=== PATIENT | male | born 1970 | race African-American/Black ===

== ENCOUNTER 2017-12-01 19:56 | Observation (INO) | payer OTHER ==
[~2017-12-01] VITALS: Ht 175.3 cm; Wt 78.0 kg
[~2017-12-01 19:56] MED LIST: AMOXICILLIN500 MG PO; AMOXICILLIN875 MG OR; CIPRO500 MG OR; FLEXERIL10 MG PO; MEDDOSEPAK OR; NAPROXEN375 MG OR; PERCOCET1 TA2 PO; PROAIR HFA IN; ROBITUSSIN AC10 ML OR; ROBITUSSIN AC10 ML PO; VENTOLIN HFA IN; ZPAK PO
[2017-12-01] MEDS ORDERED: ULTRAM50 M1 PO (20:27)
[2017-12-01 20:38] LABS: HEMATOCRIT 41.4 % (39.0-50.0); IMMATURE GRANULOCYTES 0.1 % (0.0-1.0); MEAN CELL VOLUME 91.2 fL CALC (80.0-100.0); MEAN CORPUSCULAR HGB 30.8 pG CALC (26.0-32.0); MEAN CORPUSCULAR HGB CONC 33.8 g/L CALC (32.0-36.0); NEUT# 3.62 thou/uL (1.82-7.42); RED BLOOD COUNT 4.54 mill/uL (4.70-6.10); RED CELL DISTRI WIDTH 13.3 % (11.5-15.5)
[2017-12-01 20:48] LABS: ALBUMIN 4.4 g/dL (3.2-5.0); ALKALINE PHOSPHATASE 47 u/l (38-126); ANION GAP 17 (6-22 (CALC)); BILIRUBIN, TOTAL 0.6 mg/dL (0.0-1.4); BUN 14 mg/dL (9-20); BUN/CREATININE RATIO 10 (12-20 (CALC)); CARBON DIOXIDE 26 mmol/l (22-30); CHLORIDE 103 mmol/l (95-108); CREATININE 1.4 mg/dL (0.7-1.3); GFR 55 ML/MIN (>=60 (CALC)); GFR FOR AFR.AMER. > 60 ML/MIN (>=60 (CALC)); POTASSIUM 3.7 mmol/l (3.5-5.1); SGOT/AST 34 u/l (17-59); SGPT/ALT 31 u/l (21-72); SODIUM 142 mmol/l (137-146)
[2017-12-01 20:50] VITALS: BP 132/73
[2017-12-01 21:01] LABS: MYOGLOBIN 41 ng/mL (0 - 121)
[2017-12-01 21:29] LABS: URINE BILIRUBIN - DIPSTICK NEGATIVE (NEGATIVE); URINE BLOOD DIPSTICK NEGATIVE (NEGATIVE); URINE COLOR YELLOW; URINE GLUCOSE - DIPSTICK NEGATIVE (NEGATIVE); URINE KETONE NEGATIVE (NEGATIVE); URINE LEUK ESTERASE NEGATIVE (NEGATIVE); URINE NITRITE - DIPSTICK NEGATIVE (Negative); URINE PH 6.5 (4.5-8.0); URINE PROTEIN - DIPSTICK NEGATIVE (NEG-TRACE); URINE SPECIFIC GRAVITY <=1.005; URINE UROBILINOGEN - DIPSTICK 0.2 E.U./dL (0.2)
[2017-12-01 21:30] LABS: URINE CLARITY CLEAR
[2017-12-01 21:32] LABS: BARBITURATES NEGATIVE (NEGATIVE); COCAINE NEGATIVE (NEGATIVE); METHADONE NEGATIVE (NEGATIVE); OXCYCODONE NEGATIVE (NEGATIVE); TETRAHYDROCANNABIONOL NEGATIVE (NEGATIVE); TRICYLIC ANTIDEPRESSANTS NEGATIVE (NEGATIVE)
[2017-12-02 00:54] VITALS: BP 103/57
[2017-12-02 05:14] VITALS: BP 95/55
[2017-12-02 09:02] LABS: CHOLESTEROL HDL RATIO 4.4 (<4.4 (CALC))
[2017-12-02 11:15] VITALS: BP 119/77
[2017-12-02] MEDS ORDERED: LIPITOR20 MG PO (13:16)
[2017-12-02] MEDS ORDERED: LISINOPRIL2.5 MG PO (13:16)
[2017-12-02] MEDS ORDERED: ASPIRIN ADULT L81 M2 PO (13:16)
== END 2017-12-02 13:40 | DRG 313 ==
LOC: ED 19:56 → ED-I 21:50 → ED 22:05 → MS2 22:06
PROVIDERS: Emergency Medicine; Nurse Practitioner Family; ADMIT Internal Medicine; ATTEND Internal Medicine
DX: R07.9 Chest pain, unspecified (principal); I10 Essential (primary) hypertension; I38 Endocarditis, valve unspecified; E78.5 Hyperlipidemia, unspecified; F17.210 Nicotine dependence, cigarettes, uncomplicated; J45.909 Unspecified asthma, uncomplicated; I69.922 Dysarthria following unspecified cerebrovascular disease; I69.992 Facial weakness following unspecified cerebrovascular disease; I69.998 Other sequelae following unspecified cerebrovascular disease; R20.8 Other disturbances of skin sensation; I69.931 Monoplegia of upper limb following unspecified cerebrovascular disease affecting right dominant side; Z91.14 Patient's other noncompliance with medication regimen
CPT/HCPCS: G0378

== ENCOUNTER 2020-01-17 05:37 | Emergency (ER) | payer SELFPAY ==
[~2020-01-17 05:37] MED LIST changes: +ASPIRIN ADULT L81 M2 PO; +LIPITOR20 MG PO; +LISINOPRIL2.5 MG PO; +ULTRAM50 M1 PO
[2020-01-17] MEDS ORDERED: CYCLOBENZAPR5 MG PO (08:27)
[2020-01-17] MEDS ORDERED: VOLTAREN1%GEL TOP (08:27)
[2020-01-17] MEDS ORDERED: MOTRIN400 MG PO ×2 (08:27)
[2020-01-17 08:40] VITALS: BP 179/88
== END 2020-01-17 08:37 | disposition home or self-care (01) | DRG 556 ==
LOC: ED 05:37
DX: M25.551 Pain in right hip (principal); I10 Essential (primary) hypertension; F17.200 Nicotine dependence, unspecified, uncomplicated; X50.0XXA Overexertion from strenuous movement or load, initial encounter; Y93.89 Activity, other specified; Y92.89 Other specified places as the place of occurrence of the external cause; Y99.0 Civilian activity done for income or pay; Z86.73 Personal history of transient ischemic attack (TIA), and cerebral infarction without residual deficits

== ENCOUNTER 2020-02-13 07:13 | Emergency (ER) | payer OTHER ==
[~2020-02-13] VITALS: Ht 175.3 cm; Wt 87.0 kg
[~2020-02-13 07:13] MED LIST changes: +CYCLOBENZAPR5 MG PO; +MOTRIN400 MG PO; +VOLTAREN1%GEL TOP
[2020-02-13] MEDS ORDERED: ULTRAM50 M1 PO (09:42)
[2020-02-13 09:45] LABS: URINE BILIRUBIN - DIPSTICK NEGATIVE (NEGATIVE); URINE BLOOD DIPSTICK NEGATIVE (NEGATIVE); URINE CLARITY CLEAR; URINE COLOR YELLOW; URINE GLUCOSE - DIPSTICK NEGATIVE (NEGATIVE); URINE KETONE TRACE mg/dL (NEGATIVE); URINE LEUK ESTERASE NEGATIVE (Negative); URINE NITRITE - DIPSTICK NEGATIVE (Negative); URINE PH 6.5 (4.5-8.0); URINE PROTEIN - DIPSTICK NEGATIVE (NEG-TRACE); URINE SPECIFIC GRAVITY >=1.030; URINE UROBILINOGEN - DIPSTICK 0.2 E.U./dL (0.2)
[2020-02-13 10:17] VITALS: BP 142/86
== END 2020-02-13 10:15 | disposition home or self-care (01) | DRG 554 ==
LOC: ED 07:13
PROVIDERS: Emergency Medicine
DX: M87.851 Other osteonecrosis, right femur (principal); I10 Essential (primary) hypertension; F17.200 Nicotine dependence, unspecified, uncomplicated; Z86.73 Personal history of transient ischemic attack (TIA), and cerebral infarction without residual deficits

== ENCOUNTER 2020-04-01 19:31 | Emergency (ER) | payer SELFPAY ==
[~2020-04-01] VITALS: Ht 175.3 cm; Wt 74.0 kg
[2020-04-01 21:50] VITALS: BP 149/80
== END 2020-04-01 22:00 | disposition home or self-care (01) | DRG 605 ==
LOC: ED 19:31
PROC: 0HQGXZZ Repair Left Hand Skin, External Approach (ICD-10-PCS; principal; 2020-04-01)
DX: S61.012A Laceration without foreign body of left thumb without damage to nail, initial encounter (principal); I10 Essential (primary) hypertension; F17.210 Nicotine dependence, cigarettes, uncomplicated; W26.0XXA Contact with knife, initial encounter; Y93.89 Activity, other specified; Y92.828 Other wilderness area as the place of occurrence of the external cause; Z86.73 Personal history of transient ischemic attack (TIA), and cerebral infarction without residual deficits

== ENCOUNTER 2021-02-25 00:32 | Emergency (ER) | payer OTHER ==
[~2021-02-25] VITALS: Ht 175.3 cm; Wt 74.0 kg
[2021-02-25] MEDS ORDERED: VENTOLIN HFA108 MCG IN (00:55)
[2021-02-25 01:03] LABS: HEMOGLOBIN 12.9 g/dl (14.0-18.0); IMMATURE GRANULOCYTES 0.1 % (0.0-5.0); MEAN CELL VOLUME 95.1 fL CALC (80.0-100.0); MEAN CORPUSCULAR HGB 31.5 pG CALC (26.0-32.0); MEAN CORPUSCULAR HGB CONC 33.1 g/dL CAL (32.0-36.0); NEUT# 4.47 thou/uL (1.82-7.42); RED BLOOD COUNT 4.1 mill/uL (4.70-6.10); RED CELL DISTRI WIDTH 13.7 % (11.5-15.5)
[2021-02-25 01:13] LABS: ALKALINE PHOSPHATASE 44 u/l (38-126); ANION GAP 12 (6-22 (CALC)); BILIRUBIN, TOTAL 0.4 mg/dL (0.0-1.4); BUN 10 mg/dL (9-20); BUN/CREATININE RATIO 8 (12-20 (CALC)); CARBON DIOXIDE 24 mmol/l (22-30); CHLORIDE 107 mmol/l (95-108); CREATININE 1.3 mg/dL (0.7-1.3); ETHYL ALCOHOL 78 mg/dl (0-30); GFR 59 ML/MIN (>=60 (CALC)); GFR FOR AFR.AMER. > 60 ML/MIN (>=60 (CALC)); SGOT/AST 54 u/l (17-59); SODIUM 140 mmol/l (137-146); TOTAL PROTEIN 7.3 g/dL (6.3-8.2)
[2021-02-25 01:27] LABS: ACT PARTIAL THROMBO TIME 24.1 SECONDS (20.0-32.5); PROTHROMBIN TIME 10.3 SECONDS (9.0-12.5)
[2021-02-25 03:50] VITALS: BP 147/85
== END 2021-02-25 03:50 | disposition left against medical advice (07) | DRG 605 ==
LOC: ED 00:32
PROVIDERS: Family Medicine
DX: S00.81XA Abrasion of other part of head, initial encounter (principal); S00.211A Abrasion of right eyelid and periocular area, initial encounter; S00.83XA Contusion of other part of head, initial encounter; S00.11XA Contusion of right eyelid and periocular area, initial encounter; I10 Essential (primary) hypertension; J45.909 Unspecified asthma, uncomplicated; E78.00 Pure hypercholesterolemia, unspecified; F17.200 Nicotine dependence, unspecified, uncomplicated; V47.5XXA Car driver injured in collision with fixed or stationary object in traffic accident, initial encounter; Z86.73 Personal history of transient ischemic attack (TIA), and cerebral infarction without residual deficits; Z91.19 Patient's noncompliance with other medical treatment and regimen; Z72.89 Other problems related to lifestyle

== ENCOUNTER 2021-06-15 10:28 | Emergency (ER) | payer BC ==
[~2021-06-15] VITALS: Ht 175.3 cm; Wt 72.0 kg
[~2021-06-15 10:28] MED LIST changes: +VENTOLIN HFA108 MCG IN
[2021-06-15 12:52] LABS: HEMATOCRIT 41.3 % (39.0-50.0); HEMOGLOBIN 13.8 g/dl (14.0-18.0); MEAN CELL VOLUME 94.1 fL CALC (80.0-100.0); MEAN CORPUSCULAR HGB 31.4 pG CALC (26.0-32.0); MEAN CORPUSCULAR HGB CONC 33.4 g/dL CAL (32.0-36.0); NEUT# 3.48 thou/uL (1.82-7.42); RED BLOOD COUNT 4.39 mill/uL (4.70-6.10); RED CELL DISTRI WIDTH 13.6 % (11.5-15.5)
[2021-06-15 13:10] LABS: ALBUMIN 4.3 g/dL (3.2-5.0); ALKALINE PHOSPHATASE 56 u/l (38-126); ANION GAP 10 (6-22 (CALC)); BILIRUBIN, TOTAL 0.5 mg/dL (0.0-1.4); BUN 14 mg/dL (9-20); BUN/CREATININE RATIO 12 (12-20 (CALC)); CARBON DIOXIDE 28 mmol/l (22-30); CHLORIDE 105 mmol/l (95-108); CREATININE 1.2 mg/dL (0.7-1.3); GFR > 60 ML/MIN (>=60 (CALC)); GFR FOR AFR.AMER. > 60 ML/MIN (>=60 (CALC)); POTASSIUM 3.9 mmol/l (3.5-5.1); SGOT/AST 45 u/l (17-59); SODIUM 140 mmol/l (137-146)
[2021-06-15] MEDS ORDERED: KEFLEX500 MG PO (13:51)
[2021-06-15] MEDS ORDERED: PERCOCET 5/321 COMBO PO (13:53)
[2021-06-15] MEDS ORDERED: TORADOL PO (13:56)
[2021-06-15 14:05] VITALS: BP 185/92
== END 2021-06-15 14:10 | disposition home or self-care (01) | DRG 607 ==
LOC: ED 10:28
PROVIDERS: Emergency Medicine
PROC: 0H91XZZ Drainage of Face Skin, External Approach (ICD-10-PCS; principal; 2021-06-15)
DX: L72.3 Sebaceous cyst (principal); M25.551 Pain in right hip; J45.909 Unspecified asthma, uncomplicated; I10 Essential (primary) hypertension; E78.00 Pure hypercholesterolemia, unspecified; F17.210 Nicotine dependence, cigarettes, uncomplicated; Z86.73 Personal history of transient ischemic attack (TIA), and cerebral infarction without residual deficits

== ENCOUNTER 2021-08-28 07:24 | Emergency (ER) | payer SELFPAY ==
[~2021-08-28] VITALS: Ht 175.3 cm; Wt 76.4 kg
[~2021-08-28 07:24] MED LIST changes: +KEFLEX500 MG PO; +PERCOCET 5/321 COMBO PO; +PERCOCET1 TA4 PO; +TORADOL PO
[2021-08-28 09:00] VITALS: BP 155/76
[2021-08-28] MEDS ORDERED: VOLTAREN1%GEL TOP (09:09)
== END 2021-08-28 09:26 | disposition home or self-care (01) | DRG 554 ==
LOC: ED 07:24
DX: M17.12 Unilateral primary osteoarthritis, left knee (principal); M25.862 Other specified joint disorders, left knee; I10 Essential (primary) hypertension; E78.00 Pure hypercholesterolemia, unspecified; J45.909 Unspecified asthma, uncomplicated; F17.200 Nicotine dependence, unspecified, uncomplicated; Z86.73 Personal history of transient ischemic attack (TIA), and cerebral infarction without residual deficits
CPT/HCPCS: L1830

== ENCOUNTER 2021-10-19 10:02 | Emergency (ER) | payer BC ==
[~2021-10-19] VITALS: Ht 175.3 cm; Wt 75.0 kg
[2021-10-19] MEDS ORDERED: PERCOCET 5/325M1 TAB PO (11:18)
[2021-10-19 11:55] VITALS: BP 107/67
== END 2021-10-19 11:55 | disposition home or self-care (01) | DRG 948 ==
LOC: ED 10:02
DX: G89.18 Other acute postprocedural pain (principal); I10 Essential (primary) hypertension; J45.909 Unspecified asthma, uncomplicated; E78.00 Pure hypercholesterolemia, unspecified; F17.210 Nicotine dependence, cigarettes, uncomplicated; Z86.73 Personal history of transient ischemic attack (TIA), and cerebral infarction without residual deficits; Z96.641 Presence of right artificial hip joint

== ENCOUNTER 2023-02-20 05:00 | Emergency (ER) | payer BC ==
[~2023-02-20] VITALS: Ht 175.3 cm; Wt 68.0 kg
[~2023-02-20 05:00] MED LIST changes: +PERCOCET 5/325M1 TAB PO
[2023-02-20] MEDS ORDERED: NAPROXEN250 MG PO (05:16)
[2023-02-20 05:45] LABS: BASO% 0.6 % (0-3); EOS% 3.9 % (0-8); HEMATOCRIT 41.9 % (39.0-50.0); HEMOGLOBIN 13.5 g/dl (14.0-18.0); IMMATURE GRANULOCYTES 0.2 % (0.0-5.0); LYMPH% 29.1 % (15-41); MEAN CELL VOLUME 97.4 fL CALC (80.0-100.0); MEAN CORPUSCULAR HGB 31.4 pG CALC (26.0-32.0); MEAN CORPUSCULAR HGB CONC 32.2 g/dL CAL (32.0-36.0); MONO% 7.8 % (2-13); NEUT# 3.6 thou/uL (1.82-7.42); NEUT% 58.4 % (42-76); RED BLOOD COUNT 4.3 mill/uL (4.70-6.10); RED CELL DISTRI WIDTH 14.4 % (11.5-15.5)
[2023-02-20 05:56] LABS: ALBUMIN 4.1 g/dL (3.2-5.0); ALKALINE PHOSPHATASE 53 u/l (38-126); ANION GAP 9 (6-22 (CALC)); BUN 17 mg/dL (9-20); BUN/CREATININE RATIO 14 (12-20 (CALC)); CARBON DIOXIDE 25 mmol/l (22-30); CHLORIDE 108 mmol/l (95-108); CREATININE 1.1 mg/dL (0.7-1.3); ETHYL ALCOHOL 0 mg/dl (0-30); GFR FOR AFR.AMER. > 60 ML/MIN (>=60 (CALC)); GFR OTHER RACES > 60 ML/MIN (>=60 (CALC)); MAGNESIUM 1.9 mg/dL (1.6-2.3); POTASSIUM 4.4 mmol/l (3.5-5.1); SGOT/AST 28 u/l (17-59); SODIUM 138 mmol/l (137-146); TOTAL PROTEIN 7.1 g/dL (6.3-8.2)
[2023-02-20 05:57] LABS: BILIRUBIN, TOTAL 0.2 mg/dL (0.2-1.3)
[2023-02-20 17:26] LABS: URINE BILIRUBIN - DIPSTICK NEGATIVE (NEGATIVE); URINE BLOOD DIPSTICK NEGATIVE (NEGATIVE); URINE COLOR YELLOW; URINE GLUCOSE - DIPSTICK NEGATIVE (NEGATIVE); URINE KETONE NEGATIVE (NEGATIVE); URINE LEUK ESTERASE NEGATIVE (NEGATIVE); URINE PROTEIN - DIPSTICK NEGATIVE (NEG-TRACE); URINE SPECIFIC GRAVITY >=1.030; URINE UROBILINOGEN - DIPSTICK 0.2 E.U./dL (0.2)
[2023-02-20 17:28] LABS: URINE NITRITE - DIPSTICK NEGATIVE (Negative)
[2023-02-20 19:20] VITALS: BP 131/87
== END 2023-02-20 19:30 | DRG 880 ==
LOC: ED 05:00
PROVIDERS: Family Medicine
DX: R45.851 Suicidal ideations (principal); R44.0 Auditory hallucinations; F12.10 Cannabis abuse, uncomplicated; I10 Essential (primary) hypertension; J45.909 Unspecified asthma, uncomplicated; E78.00 Pure hypercholesterolemia, unspecified; F17.200 Nicotine dependence, unspecified, uncomplicated; Z86.73 Personal history of transient ischemic attack (TIA), and cerebral infarction without residual deficits; Z96.641 Presence of right artificial hip joint

== ENCOUNTER 2023-09-08 13:19 | Inpatient (IN) | payer BC ==
[~2023-09-08] VITALS: Ht 175.3 cm; Wt 65.8 kg
[2023-09-08] VITALS (23 sets, daily range): BP systolic 129–178; BP diastolic 67–87
[~2023-09-08 13:19] MED LIST changes: +NAPROXEN250 MG PO
[2023-09-08 13:52] LABS: BASO% 0.3 % (0-3); EOS% 2.1 % (0-8); HEMATOCRIT 41.8 % (39.0-50.0); HEMOGLOBIN 13.6 g/dl (14.0-18.0); IMMATURE GRANULOCYTES 0.2 % (0.0-5.0); LYMPH% 29.9 % (15-41); MEAN CELL VOLUME 96.8 fL CALC (80.0-100.0); MEAN CORPUSCULAR HGB 31.5 pG CALC (26.0-32.0); MEAN CORPUSCULAR HGB CONC 32.5 g/dL CAL (32.0-36.0); MONO% 12.4 % (2-13); NEUT# 3.33 thou/uL (1.82-7.42); NEUT% 55.1 % (42-76); RED BLOOD COUNT 4.32 mill/uL (4.70-6.10); RED CELL DISTRI WIDTH 13.3 % (11.5-15.5)
[2023-09-08 14:17] LABS: INTERNATIONAL NORMALIZED RATIO 1.1 RATIO (0.7-1.3); PROTHROMBIN TIME 10.4 SECONDS (9.0-12.5)
[2023-09-08 14:38] LABS: ALBUMIN 4.1 g/dL (3.2-5.0); ALKALINE PHOSPHATASE 47 u/l (38-126); ANION GAP 9 (6-22 (CALC)); BUN 19 mg/dL (9-20); BUN/CREATININE RATIO 18 (12-20 (CALC)); CALCULATED LDLCHOLESTEROL 111 mg/dL (62-129 (CALC)); CARBON DIOXIDE 26 mmol/l (22-30); CHLORIDE 108 mmol/l (95-108); CHOLESTEROL HDL RATIO 3.7 (<4.4 (CALC)); CREATININE 1.1 mg/dL (0.7-1.3); GFR FOR AFR.AMER. > 60 ML/MIN (>=60 (CALC)); GFR OTHER RACES > 60 ML/MIN (>=60 (CALC)); HDL CHOLESTEROL 46 mg/dL (39.0-59.0); POTASSIUM 4.3 mmol/l (3.5-5.1); SGOT/AST 45 u/l (17-59); SODIUM 138 mmol/l (137-146); TOTAL CHOLESTEROL 168 mg/dl (0-199); TOTAL PROTEIN 7.4 g/dL (6.3-8.2); TOTAL TRIGLYCERIDES 59 mg/dl (0-149); VLDL CHOLESTROL 12 mg/dl (8-62 (CALC))
[2023-09-08 14:45] LABS: BILIRUBIN, TOTAL 0.3 mg/dL (0.2-1.3)
[2023-09-08 18:04] LABS: C-REACTIVE PROTEIN < 0.5 mg/dL (0-0.9)
[2023-09-08 20:13] LABS: URINE BILIRUBIN - DIPSTICK Negative (NEGATIVE); URINE BLOOD DIPSTICK Moderate (NEGATIVE); URINE GLUCOSE - DIPSTICK Negative (NEGATIVE); URINE KETONE Negative (NEGATIVE); URINE LEUK ESTERASE Negative (NEGATIVE); URINE NITRITE - DIPSTICK Negative (Negative); URINE PROTEIN - DIPSTICK Negative (NEG-TRACE); URINE UROBILINOGEN - DIPSTICK 0.2 E.U./dL (0.2)
[2023-09-08 20:17] LABS: URINE COLOR Yellow
[2023-09-08 20:24] LABS: URINE WBC 0-2 WBC/hpf (0-5)
[2023-09-09] VITALS (59 sets, daily range): BP systolic 116–187; BP diastolic 65–151
[2023-09-09 05:06] LABS: HEMOGLOBIN 14.6 g/dl (14.0-18.0); MEAN CELL VOLUME 96.1 fL CALC (80.0-100.0); MEAN CORPUSCULAR HGB 31.9 pG CALC (26.0-32.0); MEAN CORPUSCULAR HGB CONC 33.2 g/dL CAL (32.0-36.0); RED BLOOD COUNT 4.58 mill/uL (4.70-6.10); RED CELL DISTRI WIDTH 13.1 % (11.5-15.5)
[2023-09-09 05:17] LABS: ALBUMIN 3.7 g/dL (3.2-5.0); ALKALINE PHOSPHATASE 58 u/l (38-126); ANION GAP 9 (6-22 (CALC)); BILIRUBIN, TOTAL 0.5 mg/dL (0.2-1.3); BUN 16 mg/dL (9-20); BUN/CREATININE RATIO 15 (12-20 (CALC)); CARBON DIOXIDE 26 mmol/l (22-30); CHLORIDE 108 mmol/l (95-108); GFR FOR AFR.AMER. > 60 ML/MIN (>=60 (CALC)); GFR OTHER RACES > 60 ML/MIN (>=60 (CALC)); MAGNESIUM 1.9 mg/dL (1.6-2.3); POTASSIUM 4.3 mmol/l (3.5-5.1); SGOT/AST 30 u/l (17-59); SODIUM 139 mmol/l (137-146); TOTAL PROTEIN 6.6 g/dL (6.3-8.2)
[2023-09-10] VITALS (12 sets, daily range): BP systolic 118–154; BP diastolic 64–82
[2023-09-10 09:06] LABS: BASO% 0.7 % (0-3); EOS% 2.2 % (0-8); HEMATOCRIT 40.5 % (39.0-50.0); HEMOGLOBIN 13.1 g/dl (14.0-18.0); IMMATURE GRANULOCYTES 0.2 % (0.0-5.0); LYMPH% 31.6 % (15-41); MEAN CELL VOLUME 97.8 fL CALC (80.0-100.0); MEAN CORPUSCULAR HGB 31.6 pG CALC (26.0-32.0); MEAN CORPUSCULAR HGB CONC 32.3 g/dL CAL (32.0-36.0); MONO% 9.7 % (2-13); NEUT# 2.96 thou/uL (1.82-7.42); NEUT% 55.6 % (42-76); RED BLOOD COUNT 4.14 mill/uL (4.70-6.10); RED CELL DISTRI WIDTH 13.1 % (11.5-15.5)
[2023-09-10 09:37] LABS: ANION GAP 9 (6-22 (CALC)); BUN 16 mg/dL (9-20); BUN/CREATININE RATIO 15 (12-20 (CALC)); CARBON DIOXIDE 25 mmol/l (22-30); CHLORIDE 110 mmol/l (95-108); GFR FOR AFR.AMER. > 60 ML/MIN (>=60 (CALC)); GFR OTHER RACES > 60 ML/MIN (>=60 (CALC)); POTASSIUM 4.1 mmol/l (3.5-5.1); SODIUM 140 mmol/l (137-146)
[2023-09-10] MEDS ORDERED: ASPIRIN81 MG PO (14:53)
[2023-09-10] MEDS ORDERED: ATORVASTATIN CA40 MG PO (14:53)
[2023-09-10] MEDS ORDERED: PLAVIX75 MG PO (14:53)
[2023-09-11] MEDS ORDERED: LIPITOR80 M1 PO (14:16)
== END 2023-09-10 15:45 | disposition home or self-care (01) | DRG 64 ==
LOC: ED 13:19 → ICU 16:54
PROVIDERS: Emergency Medicine; ADMIT Student in an Organized Health Care Education/Training Program; ATTEND Student in an Organized Health Care Education/Training Program
DX: I63.81 Other cerebral infarction due to occlusion or stenosis of small artery (principal); G82.50 Quadriplegia, unspecified; I63.423 Cerebral infarction due to embolism of bilateral anterior cerebral arteries; R47.81 Slurred speech; R41.0 Disorientation, unspecified; R29.706 NIHSS score 6; I10 Essential (primary) hypertension; F15.90 Other stimulant use, unspecified, uncomplicated; E78.00 Pure hypercholesterolemia, unspecified; F41.9 Anxiety disorder, unspecified; F17.200 Nicotine dependence, unspecified, uncomplicated; Z86.73 Personal history of transient ischemic attack (TIA), and cerebral infarction without residual deficits; Z63.5 Disruption of family by separation and divorce
CPT/HCPCS: J1650; Q9967

== ENCOUNTER 2023-09-29 18:46 | Emergency (ER) | payer OTHER ==
[~2023-09-29] VITALS: Ht 175.3 cm; Wt 67.4 kg
[~2023-09-29 18:46] MED LIST changes: +ASPIRIN81 MG PO; +ATORVASTATIN CA40 MG PO; +LIPITOR80 M1 PO; +PLAVIX75 MG PO
[2023-09-29 19:02] VITALS: BP 133/70
[2023-09-29 19:15] VITALS: BP 128/68
[2023-09-29 19:15] LABS: BASO% 0.7 % (0-3); EOS% 2.8 % (0-8); HEMATOCRIT 42.3 % (39.0-50.0); HEMOGLOBIN 13.8 g/dl (14.0-18.0); LYMPH% 39.9 % (15-41); MEAN CELL VOLUME 95.9 fL CALC (80.0-100.0); MEAN CORPUSCULAR HGB 31.3 pG CALC (26.0-32.0); MEAN CORPUSCULAR HGB CONC 32.6 g/dL CAL (32.0-36.0); MONO% 10.5 % (2-13); NEUT# 2.78 thou/uL (1.82-7.42); NEUT% 46.1 % (42-76); RED BLOOD COUNT 4.41 mill/uL (4.70-6.10); RED CELL DISTRI WIDTH 13.1 % (11.5-15.5)
[2023-09-29 19:31] VITALS: BP 136/65
[2023-09-29 19:31] LABS: ALBUMIN 4.2 g/dL (3.2-5.0); ALKALINE PHOSPHATASE 48 u/l (38-126); ANION GAP 7 (6-22 (CALC)); BUN 18 mg/dL (9-20); BUN/CREATININE RATIO 18 (12-20 (CALC)); CALCULATED LDLCHOLESTEROL 84 mg/dL (62-129 (CALC)); CARBON DIOXIDE 30 mmol/l (22-30); CHLORIDE 104 mmol/l (95-108); GFR FOR AFR.AMER. > 60 ML/MIN (>=60 (CALC)); GFR OTHER RACES > 60 ML/MIN (>=60 (CALC)); HDL CHOLESTEROL 55 mg/dL (39.0-59.0); POTASSIUM 4.1 mmol/l (3.5-5.1); PROTHROMBIN TIME 9.9 SECONDS (9.0-12.5); SGOT/AST 43 u/l (17-59); SODIUM 138 mmol/l (137-146); TOTAL CHOLESTEROL 165 mg/dl (0-199); TOTAL PROTEIN 6.9 g/dL (6.3-8.2); TOTAL TRIGLYCERIDES 127 mg/dl (0-149); VLDL CHOLESTROL 25 mg/dl (8-62 (CALC))
[2023-09-29 19:38] LABS: BILIRUBIN, TOTAL 0.2 mg/dL (0.2-1.3)
[2023-09-29 19:47] VITALS: BP 99/63
== END 2023-09-29 20:00 | disposition left against medical advice (07) | DRG 66 ==
LOC: ED 18:46
PROVIDERS: Family Medicine
DX: I63.9 Cerebral infarction, unspecified (principal); R20.0 Anesthesia of skin; R40.0 Somnolence; R41.0 Disorientation, unspecified; R29.810 Facial weakness; R29.709 NIHSS score 9; I10 Essential (primary) hypertension; F14.10 Cocaine abuse, uncomplicated; J45.909 Unspecified asthma, uncomplicated; F41.9 Anxiety disorder, unspecified; F17.200 Nicotine dependence, unspecified, uncomplicated; Z86.73 Personal history of transient ischemic attack (TIA), and cerebral infarction without residual deficits; Z53.29 Procedure and treatment not carried out because of patient's decision for other reasons

== ENCOUNTER 2023-10-01 18:12 | Observation (INO) | payer OTHER ==
[~2023-10-01] VITALS: Ht 175.3 cm; Wt 65.0 kg
[2023-10-01] VITALS (9 sets, daily range): BP systolic 122–152; BP diastolic 58–91
--- NOTE | 2023-10-01 18:33 | NUR ---
PT DROP OFF BY SON REQUESTING THAT PT NEED A SHOT OF WHAT WE GAVE HIM LAST TIME TO CALM HIM DOWN.
--- NOTE | 2023-10-01 19:15 | NUR ---
REPORT FROM MAGDALENO FAJARDO. ASSUMING PT. CARE AT THIS TIME.
[2023-10-01 19:47] LABS: URINE BILIRUBIN - DIPSTICK Negative (NEGATIVE); URINE BLOOD DIPSTICK Negative (NEGATIVE); URINE GLUCOSE - DIPSTICK Negative (NEGATIVE); URINE KETONE Negative (NEGATIVE); URINE LEUK ESTERASE Negative (NEGATIVE); URINE NITRITE - DIPSTICK Negative (Negative); URINE PROTEIN - DIPSTICK Trace mg/dL (NEG-TRACE); URINE SPECIFIC GRAVITY 1.025; URINE UROBILINOGEN - DIPSTICK 0.2 E.U./dL (0.2)
[2023-10-01 19:49] LABS: URINE COLOR Yellow
[2023-10-01 19:50] LABS: BASO% 0.4 % (0-3); EOS% 1.1 % (0-8); HEMATOCRIT 43.4 % (39.0-50.0); HEMOGLOBIN 14.3 g/dl (14.0-18.0); IMMATURE GRANULOCYTES 0.1 % (0.0-5.0); LYMPH% 25.1 % (15-41); MEAN CELL VOLUME 95.6 fL CALC (80.0-100.0); MEAN CORPUSCULAR HGB 31.5 pG CALC (26.0-32.0); MEAN CORPUSCULAR HGB CONC 32.9 g/dL CAL (32.0-36.0); MONO% 11.9 % (2-13); NEUT# 4.6 thou/uL (1.82-7.42); NEUT% 61.4 % (42-76); RED BLOOD COUNT 4.54 mill/uL (4.70-6.10)
[2023-10-01 20:07] LABS: ALBUMIN 4.4 g/dL (3.2-5.0); ALKALINE PHOSPHATASE 49 u/l (38-126); ANION GAP 11 (6-22 (CALC)); BUN 18 mg/dL (9-20); BUN/CREATININE RATIO 16 (12-20 (CALC)); CALCULATED LDLCHOLESTEROL 121 mg/dL (62-129 (CALC)); CARBON DIOXIDE 29 mmol/l (22-30); CHLORIDE 102 mmol/l (95-108); CHOLESTEROL HDL RATIO 3.2 (<4.4 (CALC)); CREATININE 1.1 mg/dL (0.7-1.3); GFR FOR AFR.AMER. > 60 ML/MIN (>=60 (CALC)); GFR OTHER RACES > 60 ML/MIN (>=60 (CALC)); HDL CHOLESTEROL 61 mg/dL (39.0-59.0); POTASSIUM 4.5 mmol/l (3.5-5.1); SGOT/AST 41 u/l (17-59); SODIUM 138 mmol/l (137-146); TOTAL CHOLESTEROL 193 mg/dl (0-199); TOTAL PROTEIN 7.4 g/dL (6.3-8.2); TOTAL TRIGLYCERIDES 56 mg/dl (0-149); VLDL CHOLESTROL 11 mg/dl (8-62 (CALC))
[2023-10-01 20:08] LABS: BILIRUBIN, TOTAL 0.3 mg/dL (0.2-1.3)
[2023-10-01 20:11] LABS: INTERNATIONAL NORMALIZED RATIO 1.1 RATIO (0.7-1.3); PROTHROMBIN TIME 10.2 SECONDS (9.0-12.5)
--- NOTE | 2023-10-01 20:20 | NUR ---
IMAGING RETURNED MD NOTIFIED.
--- NOTE | 2023-10-01 20:46 | NUR ---
ROUNDING COMPLETED AT THIS TIME NO NEEDS IDENTIFIED.
--- NOTE | 2023-10-01 21:40 | NUR ---
ROUNDING COMPLETE NO NEEDS IDENTIFIED.
--- NOTE | 2023-10-01 22:40 | NUR ---
ROUNDING COMPLETED NO NEEDS IDNETIFIED AT THIS TIME.
[2023-10-02] VITALS (8 sets, daily range): BP systolic 118–140; BP diastolic 58–75
[2023-10-02] MEDS ORDERED: ACETAMINOPHEN 325 MG/TAB PO PRN (00:50)
[2023-10-02] MEDS ORDERED: MAGNESIUM HYDROXIDE 30 ML UDC PO PRN (00:50)
[2023-10-02] MEDS ORDERED: SODIUM CHLORIDE 0.9% 1,000 ML IV PRN (00:50)
--- NOTE | 2023-10-02 01:36 | NUR ---
REPORT CALLED TO [facility] PT. WAS TRANSPORTED TO ROOM 280 VIA STRETCHER ON TELE 7 WITHOUT INCIDENT.
--- NOTE | 2023-10-02 01:40 | NUR ---
PATIENT ADMITTED TO ROOM 280 VIA STRETCHER. ALERT. AMBULATED SELF TO ROOM BED WITH SUPERVISION. IN ROOM WELL. ASSESSMENT COMPLETE. PATIENT ABLE TO ANSWER APPROPRIATELY AT TIMES. SOMETIMES HIS SPEECH IS SLURRED IF HE IS TRYING TO SPEAK A FULL SENTENCE. PATIENT IS ABLE TO MOVE ALL EXTREMITIES BUT HAS WEAKNESS TO RIGHT ARM. NO COMPLAINTS OF PAIN VOICED. NO DISTRESS NOTED. ORIENTED TO ROOM, CALL AN[facility] AND [facility].
--- NOTE | 2023-10-02 04:10 | NUR ---
PATIENT REMAINS RESTING IN BED WITH EYES CLOSED. REMAINS AT BEDSIDE. NO COMPLAINTS VOICED AT THIS TIME. BED REMAINS IN LOW POSITION. CALL ANTHONY IN REACH.
--- NOTE | 2023-10-02 09:40 | NUR ---
CONTACTED TEAROOM HOSTESS, MAGDALENO BARILLAS, AND ADVISED HER OF THE NEUROLOGY CONSULT FOR THIS PATIENT.
[2023-10-02 10:03] LABS: ALKALINE PHOSPHATASE 47 u/l (38-126); ANION GAP 9 (6-22 (CALC)); BILIRUBIN, TOTAL 0.3 mg/dL (0.2-1.3); BUN 17 mg/dL (9-20); BUN/CREATININE RATIO 17 (12-20 (CALC)); CALCULATED LDLCHOLESTEROL 105 mg/dL (62-129 (CALC)); CARBON DIOXIDE 28 mmol/l (22-30); CHLORIDE 106 mmol/l (95-108); CHOLESTEROL HDL RATIO 3.3 (<4.4 (CALC)); GFR FOR AFR.AMER. > 60 ML/MIN (>=60 (CALC)); GFR OTHER RACES > 60 ML/MIN (>=60 (CALC)); HDL CHOLESTEROL 52 mg/dL (39.0-59.0); MAGNESIUM 1.9 mg/dL (1.6-2.3); POTASSIUM 4.3 mmol/l (3.5-5.1); SGOT/AST 38 u/l (17-59); SODIUM 139 mmol/l (137-146); TOTAL CHOLESTEROL 172 mg/dl (0-199); TOTAL PROTEIN 6.6 g/dL (6.3-8.2); TOTAL TRIGLYCERIDES 71 mg/dl (0-149); VLDL CHOLESTROL 14 mg/dl (8-62 (CALC))
[2023-10-02] MEDS ORDERED: DEXTROSE 250 ML IV PRN (10:55)
[2023-10-02] MEDS ORDERED: CLOPIDOGREL BISULFATE 75 MG/TAB TAB PO SCH (11:00)
[2023-10-02] MEDS ORDERED: ASPIRIN 81 MG/TAB PO SCH (11:00)
--- NOTE | 2023-10-02 17:00 | NUR ---
AT 1700 HRS, I WAS CONTACTED BY DARRELL FROM [facility]. DARRELL ADVISED THAT THIS PATIENT'S TRANSFER HAD BEEN ACCEPTED BY DR ADEN JOHNSON AT 1615 HRS. DARRELL PROVIDED AN ASSIGNED ROOM NUMBER OF 420-1. DARRELL REQUESTED THAT A FACESHEET BE SENT TO THE [facility] AT FAX # [phone]. FAX WAS SENT AT APPRX 1710 HRS. AT 1728 HRS, I MADE CONTACT WITH [facility]. I SPOKE WITH HUI. HUI PROVIDED AN ETA FOR [facility] AT 1805 HRS.
--- NOTE | 2023-10-02 18:34 | NUR ---
TRANSFERRED TO [facility] ROOM 420. FOR FURTHER NEURO AND CARDIOLOGY WORK UP. AT BEDSIDE AWARE OF TRANSFER.
[2023-10-02] MEDS ORDERED: ATORVASTATIN CALCIUM 40 MG/TAB PO SCH (21:00)
== END 2023-10-02 18:29 | disposition short-term general hospital (02) | DRG 65 ==
LOC: ED 18:12 → ED-I 10-02 00:10 → ED 10-02 00:28 → MS2 10-02 00:29
PROVIDERS: Family Medicine; Nurse Practitioner Family; ADMIT Internal Medicine; ATTEND Internal Medicine
DX: I63.522 Cerebral infarction due to unspecified occlusion or stenosis of left anterior cerebral artery (principal); I69.351 Hemiplegia and hemiparesis following cerebral infarction affecting right dominant side; R47.01 Aphasia; R13.10 Dysphagia, unspecified; G83.21 Monoplegia of upper limb affecting right dominant side; R29.706 NIHSS score 6; I69.320 Aphasia following cerebral infarction; I10 Essential (primary) hypertension; F14.10 Cocaine abuse, uncomplicated; J45.909 Unspecified asthma, uncomplicated; F17.200 Nicotine dependence, unspecified, uncomplicated
CPT/HCPCS: G0378; Q9967

== ENCOUNTER 2024-04-22 08:10 | Day surgery (SDC) | payer OTHER ==
[~2024-04-22] VITALS: Ht 177.8 cm; Wt 69.9 kg
[~2024-04-22 08:10] MED LIST changes: +AMLODIPINE BESYL5 MG PO; +ARICEPT10 MG PO; +ATORVASTATIN CA20 MG PO; +ELIQUIS5 MG PO; +MODAFINIL100 MG PO; +TRILEPTAL150 MG PO; +ZOLOFT25 MG PO
[2024-04-22] MEDS ORDERED: LACTATED RINGER'S 1,000 ML IV ONE (08:26)
[2024-04-22 09:45] VITALS: BP 118/77
[2024-04-22] MEDS ORDERED: PROPOFOL 200 MG/20 ML VIAL IV ONE (14:33)
[2024-04-22] MEDS ORDERED: LIDOCAINE HCL 2% 2ML SDV IV ONE (14:33)
== END 2024-04-22 10:06 | disposition home or self-care (01) | DRG 951 ==
LOC: ENDO 08:10
PROVIDERS: ATTEND Internal Medicine Gastroenterology
PROC: 0DBM8ZX Excision of Descending Colon, Via Natural or Artificial Opening Endoscopic, Diagnostic (ICD-10-PCS; principal; 2024-04-22)
PROC: 0DBL8ZX Excision of Transverse Colon, Via Natural or Artificial Opening Endoscopic, Diagnostic (ICD-10-PCS; 2024-04-22)
PROC: 0DBN8ZX Excision of Sigmoid Colon, Via Natural or Artificial Opening Endoscopic, Diagnostic (ICD-10-PCS; 2024-04-22)
DX: Z12.11 Encounter for screening for malignant neoplasm of colon (principal); D12.3 Benign neoplasm of transverse colon; K63.5 Polyp of colon; K64.8 Other hemorrhoids; I10 Essential (primary) hypertension; J45.909 Unspecified asthma, uncomplicated; G47.419 Narcolepsy without cataplexy; F17.210 Nicotine dependence, cigarettes, uncomplicated; Z86.73 Personal history of transient ischemic attack (TIA), and cerebral infarction without residual deficits